=== PATIENT | female | born 1960 | race Caucasian/White ===

== ENCOUNTER 2018-05-24 06:08 | Day surgery (SDC) | payer OTHER, BC ==
[2018-05-23 09:32] VITALS: BMI 32.4
[~2018-05-24 06:08] MED LIST: BUPIVACAINE HCL/PF (5 MG/ML) 30 ML VIAL IJ ONE; DEXAMETHASONE SOD PHOSPHATE 4 MG/1 ML VIAL NR ONE
[2018-05-24] MEDS ORDERED: LIDOCAINE HCL 1%, 10 MG/ML (20ML VIAL) ONE (07:12)
[2018-05-24] MEDS ORDERED: BUPIVACAINE HCL/PF 0.5% (5MG/ML) 10 ML VIAL ONE ×2 (07:12→10:17)
[2018-05-24] MEDS ORDERED: MIDAZOLAM HCL 2 MG/2 ML SINGLE DOSE VIAL ONE ×2 (07:45→08:52)
[2018-05-24] MEDS ORDERED: LIDOCAINE HCL/PF 2% SDV 5ML VIAL ONE (07:48)
[2018-05-24] MEDS ORDERED: PROPOFOL 20 ML ONE ×5 (07:49→09:56)
[2018-05-24] MEDS ORDERED: CLINDAMYCIN PHOSPHATE 600 MG/4 ML VIAL ONE (07:50)
[2018-05-24] MEDS ORDERED: CLINDAMYCIN PHOSPHATE 900 MG/6 ML VIAL IVPB ONE (07:52)
[2018-05-24] MEDS ORDERED: LIDOCAINE HCL 1%, 10 MG/ML (20ML VIAL) INF ONE (07:53)
[2018-05-24] MEDS ORDERED: BUPIVACAINE HCL/PF (5 MG/ML) 30 ML VIAL IJ ONE ×2 (07:53→10:40)
[2018-05-24] MEDS ORDERED: KETOROLAC TROMETHAMINE 30 MG/1 ML VIAL ONE (07:57)
[2018-05-24] MEDS ORDERED: ACETAMINOPHEN 500 MG TABLET (FP) PO PRN (08:31)
[2018-05-24] MEDS ORDERED: ONDANSETRON 4 MG/2 ML VIAL IVPUSH PRN (08:31)
[2018-05-24] MEDS ORDERED: oxyCODONE HCL 5 MG TABLET PO PRN (08:31)
[2018-05-24] MEDS ORDERED: LACTATED RINGERS SOLUTION 1,000 ML IV SCH (08:45)
[2018-05-24] MEDS ORDERED: DEXAMETHASONE SOD PHOSPHATE 4 MG/1 ML VIAL ONE ×2 (09:14→10:38)
[2018-05-24] MEDS ORDERED: DEXAMETHASONE SOD PHOSPHATE 4 MG/1 ML VIAL NR ONE (10:40)
[2018-05-24 14:34] VITALS: TEMP 98.4
[2018-05-24 14:36] VITALS: BP 107/66; PULSE 60
--- NOTE | 2018-05-27 16:50 | PATH ---
Surgical Pathology Report Patient Name: HAIM GAXIOLA [facility]. Rec. #: [id number] /Age/Gender: 1960 (Age: 57) / F Account: [id number] Location: [facility] SURGICAL Taken: 05/24/2018 Received: 05/24/2018 Reported: 05/27/2018 Physicians: Dick Martin DPM Specimen(s) Received BONE AND SOFT TISSUE, LEFT, FOOT Clinical History Left foot bunion deformity Richard and Collin's Left hammertoe second digit Final Diagnosis BONE AND SOFT TISSUE, FOOT, LEFT, RICHARD AND COLLIN'S BUNIONECTOMY, 2ND METATARSAL NONI OSTEOTOMY, ARTHRODESIS: BONE WITH DEGENERATIVE CHANGES AND DENSE FIBROCONNECTIVE TISSUE. Electronically Signed Alise Ballard M.D. Gross Description Received in formalin labeled "bone and soft tissue left foot," is a 3.0 x 2.5 x 0.4 cm aggregate of multiple wells-yellow bone and soft tissue fragments. Cement Car Dumper sections are submitted in one cassette, following decalcification. /05/24/2018 located within [facility]05/24/2018
--- NOTE | 2018-05-28 21:12 | OP ---
DATE OF OPERATION: 05/24/2018 PREOPERATIVE DIAGNOSIS: 1. Painful left foot hallux abductovalgus deformity. 2. Painful left foot second digit hammertoe deformity. 3. Painful left foot tailor's bunion deformity. 4. Painful left foot metatarsalgia. 5. 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 POSTOPERATIVE DIAGNOSIS: 1. Painful left foot hallux abductovalgus deformity. 2. Painful left foot second digit hammertoe deformity. 3. Painful left foot tailor's bunion deformity. 4. Painful left foot metatarsalgia. 5. 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 SURGEON: Dick Martin DPM ANESTHESIA: Local with MAC PROCEDURE: 1. Left foot Cecilio bunionectomy. 2. Left foot second metatarsal Lexa osteotomy. 3. Left foot second digit proximal interphalangeal joint arthroplasty with arthrodesis. 4. Layered closure. 5. Left foot tailor's bunionectomy. 6. Postoperative injection. HEMOSTASIS: Pneumatic ankle tourniquet set at 250 mmHg ESTIMATED BLOOD LOSS: Minimal MATERIALS: 2.4 x 14 mm headless Osteomed screw, 2.0 x 12 mm headless Osteomed screw, 2.0 x 12 mm headless Osteomed screw, 3.0 Vicryl and 4-0 Vicryl, 5-0 nylon, 0.062 inch K-wire, .054 inch K-wire INJECTABLES: Preoperatively 30 mL of a 1:1 mixture of 1% lidocaine plain and 0.5% Marcaine plain. Postoperatively 20 mL of an 8:2 mixture of 0.5% Marcaine plain and Decadron. COMPLICATIONS: None. CONDITIONS: Stable. DESCRIPTION OF PROCEDURE: Patient was brought to the operating room and placed on the operating table in the supine position. A well padded pneumatic ankle tourniquet was then placed on the patient's left ankle. Following IV sedation, local anesthesia was obtained utilizing 30 mL of a 1:1 mixture of 0.5% Marcaine plain and 1% lidocaine plain. The left foot was then scrubbed, prepped, and draped in the usual aseptic manner, and an Esmarch bandage was then utilized to exsanguinate the patient's left foot. The tourniquet was then inflated and an approximately 4 cm linear longitudinal incision was made dorsomedially over the 1st metatarsophalangeal joint medially and parallel to the extensor hallucis longus tendon. The incision was then deepened through the subcutaneous tissues to the capsular level using sharp and blunt dissection. Care was taken to identify and retract all vital, neural, and vascular structures. All bleeders were ligated and cauterized as necessary. The capsule was then visualized, and a linear longitudinal capsulotomy was performed. The periosteal and capsular structures were then carefully dissected free and reflected medially and laterally, thus exposing the head of the 1st metatarsal. Diffuse caseous material was found within the 1st metatarsophalangeal joint consistent with the patient's history of gout and 0.3 mm cyst was also noted in the dorsal distal aspect of the medial 1st metatarsal head. Utilizing a sagittal saw, the medial prominence of the 1st metatarsal head was resected and passed from the operative field. A bone rongeur was used to resect the bony cyst, which was then passed from the operative field. The hip was then externally rotated and the knee flexed to let the medial surface face superior for better visualization of the Cecilio procedure. A through and through V-type osteotomy was then created utilizing a sagittal bone saw. The apex pointed distally with a dorsal arm slightly longer than plantar arm to accommodate fixation. The capital fragment was then shifted laterally into an improved position and was then impacted on the head of the metatarsal shaft. A 0.062-inch K-wire was then driven across the osteotomy site for temporary fixation, and another K-wire from the Osteomed set was driven across the osteotomy site, and placement was confirmed under fluoroscopy. Next a 2.0 x 14-mm headless screw was then inserted across the osteotomy site using standard AO technique, which provided excellent compression and fixation. Position of the screw was then confirmed under fluoroscopy and was noted to be in excellent position. Both K-wires were then removed and passed from the operative field. All rough edges of bone were then resected and smoothed using power equipment, and the bunion deformity was noted to be vastly improved. A medial capsulorrhaphy was then performed to further enhance the correction. At this time, the wound was then flushed with copious amounts of sterile saline, and the periosteal and capsular structures were reapproximated using 2-0 Vicryl. Redundant capsular tissue was resected as needed, and subcutaneous tissue was then closed with 4-0 Vicryl. Skin edges were then coapted using 5-0 nylon in horizontal mattress fashion. Attention was then directed to the left foot 2nd digit which was noted to be dorsally dislocated at the level of the metatarsophalangeal joint with resultant hammertoe deformity. Attention was then directed to the neck and head of the 2nd metatarsal of the left foot. An approximately 3 cm linear longitudinal incision was placed directly over the metatarsophalangeal joint. The incision was then deepened through subcutaneous tissues to the capsular level using sharp and blunt dissection. All bleeders were ligated and cauterized as necessary. The capsule was visualized and a linear longitudinal capsulotomy was performed. The periosteal and capsular structures were then carefully dissected free and reflected medially and laterally, thus exposing the head of the 2nd metatarsal. The McGlamry elevator was then used to free up the 2nd metatarsophalangeal joint to release the contracture present. At this point a Lexa osteotomy was then performed from dorsal distal to plantar proximal to the surgical neck of the 2nd metatarsal of the left foot. The capital fragment was then transposed proximally and impacted on the shaft of the 2nd metatarsal utilizing a 0.062-inch K-wire. Next, a 2.0 x 12-mm headless screw was then used to fixate the osteotomy site using standard AO technique; fixation of the osteotomy with the screw was noted to be excellent, and placement was confirmed under fluoroscopy. A bone rongeur was then used to remove any overhanging bone from the resultant transposition of the capital fragment. The K-wire was then removed and passed from the operative field. Range of motion of the 2nd metatarsophalangeal joint was found to be excellent. Attention was then directed to the level of the proximal interphalangeal joint of the left foot 2nd digit where 2 horizontal semi- elliptical converging incisions were placed directly over the proximal interphalangeal joint. A transverse tenotomy, capsulotomy, and a medial and lateral collateral ligament release of the proximal interphalangeal joint on the 2nd digit was then performed, and the head of the proximal phalanx was adequately exposed, as well as the base of the middle phalanx. The head of the proximal phalanx was freed of its soft tissue attachments, and a sagittal saw was then used to resect the head of the proximal phalanx, which was then passed from the operative field. Utilizing a sagittal saw, the articular cartilage was then removed from the base of the middle phalanx as well. At this time there was still resultant contracture noted, so both extensor tendons were then transected at the level of the 2nd metatarsophalangeal joint. A 0.062 -inch K-wire was then driven through the base of the middle phalanx, and exiting the distal aspect of the digit, and then retrograded through the proximal phalanx all the way into the 2nd metatarsal head. Confirmation of K-wire placement was checked under fluoroscopy and noted to be excellent. At this time the K-wire was bent and cut at the distal aspect and a K-wire cap was secured into place. All open surgical areas were then copiously flushed with sterile saline, and all capsular and periosteal tissues were reapproximated utilizing 2-0 Vicryl. 4-0 Vicryl was then used to reapproximate the subcutaneous tissues, and all skin edges were reapproximated using 5-0 nylon. Attention was then directed to the dorsolateral aspect of the left foot 5th metatarsal head where a prominent dorsolateral eminence was noted. At this time, an approximately 3-cm linear longitudinal incision was made paralleling the shaft of the 5th metatarsal. Incision was then deepened through subcutaneous tissue using sharp and blunt dissection. Care was taken to identify and retract all vital neural and vascular structures. All bleeders were ligated and cauterized as necessary. At this time a capsulotomy was then performed on the dorsal aspect of the 5th metatarsophalangeal joint. The periosteal and capsular structures were then carefully dissected free and reflected medially and laterally, thus exposing the head of the 5th metatarsal. Utilizing a sagittal saw, the prominent dorsal and lateral shaft of the bone from the metatarsal head was resected and passed from the operative field. A through and through V- type osteotomy was then created utilizing a sagittal bone saw. The apex pointed distally with the plantar arm slightly longer than the dorsal arm to accommodate fixation. The capital fragment was then shifted medially into an improved position, and was then impacted on the head of the metatarsal shaft. At this time a 0.62-inch K- wire was then placed as temporary fixation from plantar lateral to dorsal medially across the osteotomy site. At this time a 2.0 x 12-mm and 2.0 x 16mm headless screws were then inserted across the osteotomy site using a standard AO technique, and placement was confirmed under fluoroscopy. The k-wire was then removed and passed from the operative field. At this time it was noted the 12mm screw was spinning upon validation of the screw and the 16mm screw was not contacting bone properly so it was removed and passed from the operative field. It was then decided to further stabilize the osteotomy site by driving a 0.045- inch K-wire through the skin from proximal dorsal to distal plantar across the osteotomy site. The remaining lateral bone shelf as well as all rough edges of bone were then resected and smoothed using power equipment, and the tailor's bunion deformity was noted to be vastly improved. The K-wire was then bent and cut at the proximal end and a K-wire cap was placed and secured. The surgical site was then flushed with copious amounts of sterile saline, and the periosteal and capsular structures were reapproximated using 2-0 Vicryl. Redundant capsular tissue was resected as needed, and subcutaneous tissue was then closed with 4-0 Vicryl. Skin edges were then coapted using 5-0 nylon in a horizontal mattress fashion. Upon completion of the procedure, a total of 20 mL of 8 to 2 mixture of 0.5% Marcaine and Decadron was infiltrated to all surgical sites. All surgical sites were dressed with Xeroform and Betadine soaked Adaptic was applied to both K-wire exit sites from the skin and covered with sterile compressive dressings such as 4 x 4's, Bibiana, and abdominal pads. Next Kerlix was applied followed by deflation of the tourniquet which showed immediate hyperemia to all digits of the left foot. Left foot was then wrapped with Coban. Patient tolerated the procedure well and was transported from the operating room to the recovery room with all vital signs stable and neurovascular status intact to the left foot. Following a period of postoperative monitoring, the patient was discharged and was given instructions and prescriptions prior to the surgery. Patient will follow up in private office in 1 week. SAMY ARIAS/[id number] MTDDiana
== END 2018-05-24 14:00 | disposition home or self-care (01) ==
LOC: JASU-SURG 06:08
PROVIDERS: ATTEND Podiatrist
PROC: 0QSP04Z Reposition Left Metatarsal with Internal Fixation Device, Open Approach (ICD-10-PCS; 2018-05-24)
PROC: 0QSP04Z Reposition Left Metatarsal with Internal Fixation Device, Open Approach (ICD-10-PCS; 2018-05-24)
PROC: 0SRQ0JZ Replacement of Left Toe Phalangeal Joint with Synthetic Substitute, Open Approach (ICD-10-PCS; principal; 2018-05-24 07:30)
PROC: 0QSP04Z Reposition Left Metatarsal with Internal Fixation Device, Open Approach (ICD-10-PCS; 2018-05-24 07:30)
DX: M20.12 Hallux valgus (acquired), left foot (principal); M20.42 Other hammer toe(s) (acquired), left foot; M21.622 Bunionette of left foot; M77.42 Metatarsalgia, left foot; M24.575 Contracture, left foot
CPT/HCPCS: 73630-TC-LT; 76000-TC-FY; 88304-TC; 88311-TC; 94760; 97116-GP